=== PATIENT | male | born 1940 | race Caucasian/White ===

== ENCOUNTER 2017-08-10 10:35 | Day surgery (SDC) | payer MEDICARE ==
[2017-08-06 14:12] VITALS: BMI 31.4
[~2017-08-10 10:35] MED LIST: LACTATED RINGERS 1,000 ML IV SCH; LIDOCAINE 1% 20 ML VIAL (10MG/ML) FOR IV START INTRADERMA PRN
[2017-08-10 11:45] VITALS: RESP 18; TEMP 98.4
[2017-08-10] MEDS ORDERED: LACTATED RINGERS 1,000 ML IV ONE (11:45)
[2017-08-10] MEDS ORDERED: PROPOFOL 10 MG/ML 20 ML VIAL IV ONE (12:35)
--- NOTE | 2017-08-10 13:07 | P.PCN ---
Date of Procedure: 08/10/17 Procedure(s) Performed: Procedure: Total colonoscopy. Preoperative diagnosis: Screening for neoplasia, patient has history of polyps. Postoperative diagnosis: Exam essentially within normal limits. Preparation: HalfLytely prep. Sedation: Was provided by anesthesia. Brief clinical history: The patient is a 77-year-old male who is scheduled for this evaluation for screening for neoplasia because of history of polyps. His last exam was in July 2011. The patient has no abdominal complaints, bleeding or anemia. Procedure: With the patient on his left lateral decubitus position and after informed consent and adequate sedation, the perianal area was inspected and it did not show any fissures or fistulas. There were no masses felt on digital rectal examination. The Olympus CFQ 160L video colonoscope was then inserted in the rectum in the usual fashion and advanced to the cecum. The mucosa appeared healthy. No polyps or tumors were seen or any obvious diverticular disease or other pathology. I retroflexed the endoscope in the rectum before the endoscope was withdrawn. The patient tolerated the procedure well. Plan: The patient was reassured. At his age, I did not recommend repeat exam in 5 years and that can be kept as a contingency based on his overall health at that time. He would be discussing that with you.
[2017-08-10 13:24] VITALS: BP 126/64; PULSE 62
== END 2017-08-10 13:39 | disposition home or self-care (01) ==
LOC: ORWHC2ENDO 10:35
DX: Z12.11 Encounter for screening for malignant neoplasm of colon (principal); Z86.010 Personal history of colon polyps; E78.5 Hyperlipidemia, unspecified; N40.0 Benign prostatic hyperplasia without lower urinary tract symptoms; I10 Essential (primary) hypertension; Z87.891 Personal history of nicotine dependence; Z79.899 Other long term (current) drug therapy
CPT/HCPCS: J2704; G0105

== ENCOUNTER → 2024-09-21 | Outpatient (CLI) | payer MEDICARE ==
--- NOTE | 2024-09-24 18:25 | MR ---
EXAMINATION TYPE: MR lumbar spine wo con DATE OF EXAM: 09/21/2024 2:56 PM COMPARISON: None. CLINICAL INDICATION: Male, 84 years old with history of M48.062 SPINAL STENOSIS; PHH, Low back pain i nto RT buttocks, TECHNIQUE: Multi planar, multi sequence imaging was performed utilizing: T1-weighted, T2-weighted, a nd turbo inversion recovery imaging of the lumbar spine. IV Contrast: mL (None, if empty) FINDINGS: Alignment: The lumbar vertebral bodies have preserved heights and alignment. Cord: The conus medullaris and the distal spinal cord appear unremarkable with regards to their signa l intensity and morphology. Bones/Discs: Multilevel disc degeneration changes with osteophyte formation, disc space narrowing, Sc hmorl's nodes, and facet joint arthropathy. Intervertebral disc signal is maintained. No abnormal in version recovery signal to suggest bony edema. Abnormal bone marrow signal within the right sacrum. With mass present.r overall the area of high T2 signal lesion measures 2.6 x 2.4 cm ovarian is high T2 signal. Series 601 image 6 there is cortical b reakthrough in this lesion. There is high FLAIR signal also present T12-L1: No evidence of significant spinal canal stenosis or neural foraminal stenosis. L1-L2: No evidence of significant spinal canal stenosis or neural foraminal stenosis. L2-L3: No evidence of significant spinal canal stenosis or neural foraminal stenosis. L3-L4: Disc bulge and facet joint arthropathy result in mild spinal canal and severe left and moderat e-to-severe right neural foraminal stenosis. L4-L5: Disc bulge and facet joint arthropathy result in moderate spinal canal and moderate to severe left and severe right neural foraminal stenosis. L5-S1: Disc bulge and facet joint arthropathy result in mild spinal canal and moderate to severe bila teral neural foraminal stenosis. No significant spinal canal or neural foraminal stenosis in the remainder of the visualized levels. Other findings: High T2 signal right renal 6.9 cm cyst. No follow-up recommended. IMPRESSION: 1. Heterogenous right sacral bone marrow signal with with possible underlying mass versus sequela of fracture fracture. MRI pelvis with IV contrast recommended. Comparisons with outside imaging recomme nded if available. 2. Spinal canal stenosis worse at L4-5 with moderate spinal canal stenosis. 3. Neural foraminal stenosis worse at L3-L4 with severe left and maxillary, L4-5 with moderate to se jody left and severe right, and L5-S1 with large severe bilateral 4. No definitive evidence of disc herniation. 5. Moderate disc degeneration with associated osteoarthritic changes. [facility], , 09/24/2024 6:23 PM
== END | disposition home or self-care (01) ==
LOC: RADMRIMAIN 14:06
PROVIDERS: ATTEND Physical Medicine & Rehabilitation
DX: M48.062 Spinal stenosis, lumbar region with neurogenic claudication (principal); M51.369 Other intervertebral disc degeneration, lumbar region without mention of lumbar back pain or lower extremity pain; M47.817 Spondylosis without myelopathy or radiculopathy, lumbosacral region
CPT/HCPCS: 72148

== ENCOUNTER → 2024-11-03 | Outpatient (CLI) | payer MEDICARE ==
--- NOTE | 2024-11-03 21:03 | MR ---
MR sacrum/coccyx wo/w con DATE OF EXAM: 11/03/2024 4:31 PM COMPARISON: Lumbar spine MR 09/21/2024. 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 TECHNIQUE: Multiplanar, multiecho imaging of the sacrum was performed, including fluid sensitive and pre and postcontrast T1-weighted sequences; IV contrast was administered to potentially improve disea se detection. FINDINGS: Alignment: Anatomic alignment of the sacroiliac joints bilaterally without ankylosis, diastasis, or a symmetric narrowing. Marrow: * Aggressive trans-spacial mass centered in the right S2-S3 foramen with patchy osseous involvement (T2 hyperintense/T1 hypointense marrow replacement with destruction of bony cortex) of the right sacr al ala as well as the central sacrum S1-S4 segments. Fluid sensitive edema-like marrow signal scout es the right SI joint and involves the posterior right iliac bone which also demonstrates T1 hypointe nse correlate/areas of marrow replacement. Multilobulated predominantly T2 hyperintense foci characte rize the central portions of the mass and demonstrate internal shading and peripheral susceptibility/ hemosiderin staining suggestive of intralesional hemorrhage versus possible mineralization (CT correl ation is recommended). Heterogenous central and peripheral postcontrast enhancement. There is presacr al soft tissue edema and lower right erector spinae intramuscular edema adjacent the mass. Mass gross ly measures 7.3 x 6.0 x 3.4 cm (CC, TR, AP). Extent of the mass obscures evaluation of the right S2-S 4 nerves. * Additional lesion in the posterior right ilium, notably separate from the dominant mass demonstrat es postcontrast enhancement and measures 1.4 x 1.4 x 1.4 cm. Sacroiliac joints: Right sacroiliac joint as above. Sacral-predominant degenerative changes at the a nterior aspect of the left sacroiliac joint with subchondral cyst and presumed reactive edema-like ma rrow signal. Similar degenerative findings on the iliac side of the left sacroiliac joint inferiorly No joint effusions. Soft tissues: Enlarged internal right obturator lymph node measures up to 1.2 cm. Other: Varying degrees of sacral spinal canal stenosis. Visualized portions of the lower spinal canal are normal. IMPRESSION: 1. 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 Recommend correlation with any known primary malignancy a s metastatic disease is high on the differential. Otherwise, tissue sampling is advised. Alternativel y, a vascular malformation could appear similarly, though is felt less likely considering other findi ngs. 2. Additional suspicious enhancing lesion in the posterior right iliac bone, separate from impressio n #1, raises suspicion for metastatic process. 3. Additional enlarged right obturator lymph node, while nonspecific is concerning for metastatic di sease considering primary findings. [facility], , 11/03/2024 9:01 PM
== END | disposition home or self-care (01) ==
LOC: RADMRIMAIN 15:10
PROVIDERS: ATTEND Physical Medicine & Rehabilitation
DX: M48.062 Spinal stenosis, lumbar region with neurogenic claudication (principal); M51.16 Intervertebral disc disorders with radiculopathy, lumbar region; M47.26 Other spondylosis with radiculopathy, lumbar region; M43.16 Spondylolisthesis, lumbar region; M41.26 Other idiopathic scoliosis, lumbar region
CPT/HCPCS: 72197; A9585